=== PATIENT | female | born 1980 | race Caucasian/White ===

== ENCOUNTER 2019-06-19 07:26 | Day surgery (SDC) | payer OTHER ==
[2019-06-16 12:20] LABS: BASOPHILS # (AUTO) 0.03 x10^3/uL (0-0.1); BASOPHILS % (AUTO) 1 % (0-1); EOSINOPHILS # (AUTO) 0.27 x10^3/uL (0-0.4); EOSINOPHILS % (AUTO) 4 % (1-7); LYMPHOCYTES # (AUTO) 2.01 x10^3/uL (1-3.4); LYMPHOCYTES % (AUTO) 30 % (22-44); MD NO; MEAN CORPUSCULAR HEMOGLOBIN 30.2 pg (27.0-34.8); MEAN CORPUSCULAR HGB CONC 33.5 g/dL (32.4-35.8); MEAN PLATELET VOLUME 9.1 fL (7.4-10.4); MONOCYTES # (AUTO) 0.53 x10^3/uL (0.2-0.8); MONOCYTES % (AUTO) 8 % (2-9); NEUTROPHILS # (AUTO) 3.84 x10^3/uL (1.8-6.8); NEUTROPHILS % (AUTO) 57 % (42-75); PLATELET COUNT 298 x10^3/uL (130-400); RED BLOOD COUNT 4.71 x10^6/uL (3.82-5.3); RED CELL DISTRIBUTION WIDTH 14.4 % (9.6-15.2)
[~2019-06-19] VITALS: Ht 163.8 cm; Wt 84.1 kg
[~2019-06-19 07:26] MED LIST: BUPIVACAINE/PF 0.25% ONE; CBD oil PO; EPINEPHRINE 1 MG/ML, 1ML ONE; FENTANYL PF 250 MCG/5ML ONE; IBUP-1623 PO; MIDAZOLAM 1 MG/ML, 2ML ONE; NORE5TAB PO; SILVER NITRATE STICK TP ONE; [UNRECOGNIZED DRUG - OTHER] TP
[2019-06-19] MEDS ORDERED: LACTATED RINGERS 1,000 ML IV SCH (07:44)
[2019-06-19 07:45] VITALS: BP 115/81
[2019-06-19] MEDS ORDERED: LIDOCAINE-MPF 1%, 2ML ONE (07:47)
[2019-06-19] MEDS ORDERED: LIDOCAINE-MPF 1%, 2ML INFIL ONE (08:00)
[2019-06-19] MEDS ORDERED: DEXAMETHASONE 4 MG/ML, 1ML ONE (08:09)
[2019-06-19] MEDS ORDERED: ONDANSETRON 2MG/ML, 2ML ONE (08:09)
[2019-06-19] MEDS ORDERED: SUCCINYLCHOLINE 20 MG/ML, 10ML ONE (08:09)
[2019-06-19] MEDS ORDERED: CEFAZOLIN 1,000 MG ONE (08:09)
[2019-06-19] MEDS ORDERED: PROPOFOL 10 MG/ML, 20ML ONE (08:09)
[2019-06-19] MEDS ORDERED: ROCURONIUM 10MG/ML,5ML ONE (08:09)
[2019-06-19] MEDS ORDERED: BUPIVACAINE/PF-EPI 0.25% 1:200K INFIL ONE (08:49)
[2019-06-19] MEDS ORDERED: KETOROLAC 30 MG/1 ML IV PRN (09:00)
[2019-06-19] MEDS ORDERED: ONDANSETRON 2MG/ML, 2ML IVPush PRN (09:00)
[2019-06-19] MEDS ORDERED: DIAZEPAM 5 MG/ML, 2ML IV PRN ×2 (09:00)
[2019-06-19] MEDS ORDERED: MEPERIDINE/PF 25MG/0.5ML IVPush PRN (09:00)
[2019-06-19] MEDS ORDERED: PROMETHAZINE 25 MG/ML, 1ML IV PRN (09:00)
[2019-06-19] MEDS ORDERED: METOCLOPRAMIDE 5 MG/ML, 2ML IV PRN (09:00)
[2019-06-19] MEDS ORDERED: ALBUTEROL SULFATE 2.5 MG/3 ML NPPB PRN (09:00)
[2019-06-19] MEDS ORDERED: hydrALAzine 20 MG/ML, 1ML IV PRN (09:00)
[2019-06-19] MEDS ORDERED: LABETALOL 5MG/ML, 20ML IV PRN (09:00)
[2019-06-19] MEDS ORDERED: KETOROLAC 30 MG/1 ML ONE (09:57)
[2019-06-19] MEDS ORDERED: FENTANYL PF 100 MCG/2ML ONE (09:57)
[2019-06-19] MEDS ORDERED: ACETAMINOPHEN 650 MG/20.3 ML UDC ONE (09:57)
[2019-06-19] MEDS ORDERED: OXYcodone 5 MG/5 ML ORAL.SOL UDC ONE ×2 (09:58→10:34)
[2019-06-19] MEDS ORDERED: ACETAMINOPHEN 650 MG/20.3 ML UDC PO ONE (10:00)
[2019-06-19] MEDS: OXYcodone 5 MG/5 ML ORAL.SOL UDC PO PRN ×2 (10:00→10:35)
[2019-06-19] MEDS: FENTANYL PF 100 MCG/2ML IV PRN ×3 (10:05→10:25)
[2019-06-19] MEDS ORDERED: HYDROmorphone 1 MG/ML, 1ML INJ ONE (10:33)
[2019-06-19] MEDS: HYDROmorphone 1 MG/ML, 1ML INJ IV PRN ×2 (10:36→10:41)
== END 2019-06-19 12:05 | disposition home or self-care (01) ==
LOC: OUT 07:26
PROVIDERS: ATTEND Obstetrics & Gynecology
DX: Z30.2 Encounter for sterilization (principal); N93.9 Abnormal uterine and vaginal bleeding, unspecified; N73.6 Female pelvic peritoneal adhesions (postinfective)
CPT/HCPCS: 36415; 58563; 58670; 84703; 85025; 88302; J0171; J0330; J0690; J1100; J1170; J2250; J2405; J2704; J3010; J3490; J7120